=== PATIENT | male | born 1985 | race Caucasian/White ===

== ENCOUNTER 2020-05-01 10:40 | Emergency (ER) | payer MEDICAID ==
[~2020-05-01] VITALS: Ht 180.3 cm; Wt 115.9 kg
[2020-05-01] MEDS ORDERED: OLANZapine 5mg rapidly disint. tablet PO ONE (10:55)
--- NOTE | 2020-05-01 11:15 | NUR ---
Pressured speech and paranoid ideations, refused to give up his bible. Pages reviewed and safe to give back to patient. Gripping the book his chest.
[2020-05-01 11:25] LABS: BASOPHILS # (AUTO) 0.1 X10'3 (0-0.2); BASOPHILS % (AUTO) 0.9 % (0-1); EOSINOPHILS # (AUTO) 0.1 X10'3 (0-0.9); EOSINOPHILS % (AUTO) 1.1 % (0-6); HEMATOCRIT 45.8 % (42.0-52.0); HEMOGLOBIN 15.6 g/dl (14.0-17.9); LYMPHOCYTES # (AUTO) 1.7 X10'3 (1.1-4.8); LYMPHOCYTES % (AUTO) 16.2 % (21-51); MEAN CORPUSCULAR HEMOGLOBIN 30.5 PG (27.0-31.0); MEAN CORPUSCULAR VOLUME 89.6 FL (78-98); MONOCYTES # (AUTO) 0.7 X10'3 (0-0.9); MONOCYTES % (AUTO) 6.5 % (2-12); NEUTROPHILS # (AUTO) 7.9 X10'3 (1.8-7.7); NEUTROPHILS % (AUTO) 75.3 % (42-75); PLATELET COUNT 320 X10'3 (140-440); RED BLOOD COUNT 5.11 X10'6 (4.70-6.10); RED CELL DISTRIBUTION WIDTH 13.6 % (11.5-14.5); WHITE BLOOD COUNT 10.5 X10'3 (4.5-11.0)
[2020-05-01 11:37] LABS: CLARITY,URINE CLOUDY (Clear); COLOR,URINE YELLOW (Yellow); GLUCOSE, URINE NEGATIVE (Neg); KETONES,URINE NEGATIVE (Neg); LEUKOCYTE ESTERASE ,URINE NEGATIVE (Neg); NITRITES, URINE NEGATIVE (Neg); OCCULT BLOOD,URINE NEGATIVE (Neg); PH,URINE 8.5 (4.8-8.0); PROTEIN,URINE NEGATIVE (Neg); UA COLLECTION TYPE CLN CATCH MIDSTREAM; UROBILINOGEN,URINE 0.2 E.U/dL (0.2-1.0)
[2020-05-01 11:44] LABS: ALANINE AMINOTRANSFERASE 53 U/L (12-78); ALBUMIN 3.9 G/DL (3.4-5.0); ALBUMIN/GLOBULIN RATIO 1.1 (1.1-1.5); ALKALINE PHOSPHATASE 109 IU/L (46-116); ANION GAP 7 (8-16); ASPARTATE AMINO TRANSFERASE 57 U/L (10-37); BILIRUBIN,TOTAL 0.2 MG/DL (0.1-1.0); BLOOD UREA NITROGEN 15 MG/DL (7-18); BUN/CREATININE RATIO 13.8 (5.4-32.0); CALCIUM 9.5 MG/DL (8.5-10.1); CHLORIDE 106 MMOL/L (99-107); CREATININE 1.09 MG/DL (0.60-1.10); GLUCOSE 102 MG/DL (70-104); SODIUM 142 MMOL/L (135-145); TOTAL PROTEIN 7.3 G/DL (6.4-8.2); eGFR 78 ML/MIN
[2020-05-01 11:46] LABS: SQUAMOUS EPITHELIAL CELL,UR NONE SEEN /LPF (FEW)
[2020-05-01 11:47] LABS: AMORPHOUS PHOSPHATES 3+; BACTERIA,URINE FEW /HPF (Neg); RBC,URINE NONE SEEN /HPF (0-2); WBC,URINE 0-4 /HPF (0-4)
[2020-05-01 11:50] LABS: URINE AMPHETAMINE SCREEN NEGATIVE (Neg); URINE BARBITUATE SCREEN NEGATIVE (Neg); URINE BENZODIAZEPINES SCREEN NEGATIVE (Neg); URINE CANNABINOID SCREEN POSITIVE (Neg); URINE COCAINE SCREEN NEGATIVE (Neg); URINE METHADONE SCREEN NEGATIVE (Neg); URINE OPIATE SCREEN NEGATIVE (Neg); URINE PHENCYCLIDINE SCREEN NEGATIVE (Neg)
[2020-05-01 11:52] LABS: ETHANOL < 0.010 GM/DL (0.0-0.010)
--- NOTE | 2020-05-01 12:00 | NUR ---
Patient resting on right side with eyes closed, respirations normal
--- NOTE | 2020-05-01 13:31 | NUR ---
Patient states he feels calmer but still endorses paranoid feelings and thoughts. Thinks we are testing him with questions
--- NOTE | 2020-05-01 16:06 | NUR ---
PACKET FAXED TO [facility]
--- NOTE | 2020-05-01 16:06 | NUR ---
Patient was transferred to [facility] bed #20 at 1530. [employer] was at lunch. Pt is sleeping on left side, no distress noted. Will continue to monitor.
[2020-05-01] MEDS ORDERED: NO HOME MEDS (18:35)
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
--- NOTE | 2020-05-01 18:47 | NUR ---
Patient's grandmother, Vy Oma, [phone]
--- NOTE | 2020-05-01 19:54 | NUR ---
[facility] here to interview the patient who was irritable at times. 5150 written.
--- NOTE | 2020-05-01 20:26 | NUR ---
The patient appears to be sleeping
--- NOTE | 2020-05-01 22:57 | NUR ---
The patient appears to be sleeping
--- NOTE | 2020-05-02 00:36 | NUR ---
The patient appears to be sleeping
--- NOTE | 2020-05-02 00:56 | NUR ---
patient lying supine eyes closed covers on r/r even un labored no observable s/s of acute stress at this time will continue to monitor while covering primary RN for lunch
--- NOTE | 2020-05-02 03:52 | NUR ---
The patient appears to be sleeping
--- NOTE | 2020-05-02 05:22 | NUR ---
The patient appears to be sleeping
[2020-05-02 05:58] VITALS: BP 117/75
--- NOTE | 2020-05-02 06:43 | NUR ---
Patient sleeping on left side. No distress observed. Continue to monitor.
[2020-05-02] MEDS ORDERED: OLANZapine 5mg rapidly disint. tablet PO ONE (08:00)
--- NOTE | 2020-05-02 08:45 | NUR ---
RN gave patient his Zyprexa. Patient wants to sleep for a little while longer. Patient rolled over and went back to sleep. Continue to monitor.
--- NOTE | 2020-05-02 09:38 | NUR ---
Patient is awake and alert. Patient c/o hearing voices and he wants to be on medication. Patient states he was only on Effexor but was diagnosed with Schizo-affective d/o. Patient states he used to do meth to self medicate but has been clean for a while. Patient believes he needs help. Continue to monitor.
== END 2020-05-02 14:35 | disposition home or self-care (01) ==
LOC: ER 10:40
DX: F25.8 Other schizoaffective disorders (principal); Z20.822 Contact with and (suspected) exposure to COVID-19; F12.90 Cannabis use, unspecified, uncomplicated; Z59.0 Homelessness; Z88.6 Allergy status to analgesic agent
CPT/HCPCS: 36415; 80053; 80305; 80320; 81001; 84443; 85025; 87635; 99284; C9803; 99285

== ENCOUNTER 2022-12-02 17:52 | Emergency (ER) | payer MEDICAID ==
[~2022-12-02] VITALS: Ht 172.7 cm; Wt 86.4 kg
[~2022-12-02 17:52] MED LIST: NO HOME MEDS; OLAN10TA21 PO; TRAZ-256 PO
[2022-12-02] MEDS ORDERED: diphenhydrAMINE 50 mg/ml inj IM ONE (17:55)
[2022-12-02] MEDS ORDERED: haloperidol lactate 5mg/ml inj IM ONE (17:55)
[2022-12-02] MEDS ORDERED: LORazepam 2 mg/ml vial IM ONE (17:55)
[2022-12-02 21:06] LABS: BASOPHILS # (AUTO) 0.1 X10'3 (0-0.2); BASOPHILS % (AUTO) 0.9 % (0-1); EOSINOPHILS # (AUTO) 0.2 X10'3 (0-0.9); EOSINOPHILS % (AUTO) 1.9 % (0-6); HEMATOCRIT 45.6 % (42.0-52.0); HEMOGLOBIN 15.4 g/dl (14.0-17.9); LYMPHOCYTES # (AUTO) 2.3 X10'3 (1.1-4.8); LYMPHOCYTES % (AUTO) 24.2 % (21-51); MEAN CORPUSCULAR HEMOGLOBIN 30.5 PG (27.0-31.0); MEAN CORPUSCULAR HGB CONC 33.9 g/dL (33.0-36.5); MEAN CORPUSCULAR VOLUME 89.9 FL (78-98); MONOCYTES # (AUTO) 0.8 X10'3 (0-0.9); MONOCYTES % (AUTO) 8.7 % (2-12); NEUTROPHILS # (AUTO) 6.2 X10'3 (1.8-7.7); NEUTROPHILS % (AUTO) 64.3 % (42-75); PLATELET COUNT 312 X10'3 (140-440); RED BLOOD COUNT 5.07 X10'6 (4.70-6.10); RED CELL DISTRIBUTION WIDTH 13.8 % (11.5-14.5); WHITE BLOOD COUNT 9.7 X10'3 (4.5-11.0)
[2022-12-02 21:11] LABS: ALANINE AMINOTRANSFERASE 29 U/L (12-78); ALBUMIN 3.7 G/DL (3.4-5.0); ALBUMIN/GLOBULIN RATIO 1.2 (1.1-1.5); ALKALINE PHOSPHATASE 95 IU/L (46-116); ANION GAP 6 (8-16); ASPARTATE AMINO TRANSFERASE 30 U/L (10-37); BLOOD UREA NITROGEN 10 MG/DL (7-18); BUN/CREATININE RATIO 9.2 (10.0-20.0); CALCIUM 9.4 MG/DL (8.5-10.1); CHLORIDE 103 MMOL/L (99-107); CREATININE 1.09 MG/DL (0.60-1.10); GLUCOSE 84 MG/DL (70-104); POTASSIUM 3.3 MMOL/L (3.5-5.1); SODIUM 137 MMOL/L (135-145); TOTAL CARBON DIOXIDE 27.6 MMOL/L (24-32); TOTAL PROTEIN 6.9 G/DL (6.4-8.2); eCRCL 92 ML/MIN; eGFR 77 ML/MIN
[2022-12-02 21:21] LABS: THYROID STIMULATING HORMONE 1.23 ulU/ml (0.34-4.50)
[2022-12-02 21:24] LABS: ETHANOL < 10 MG/DL (<10)
--- NOTE | 2022-12-03 06:14 | NUR ---
RECEIVED REPORT FROM JF MEDINA ASSUMING CARE OF PT ROOM SECURE PT SLEEPING QUIETLY RESPS EVEN UNLABORED
--- NOTE | 2022-12-03 08:04 | NUR ---
breakfast meal tray given
--- NOTE | 2022-12-03 09:53 | NUR ---
Pt escorted by security from ER. Nurse to nurse report received from [place]. Pt is resting.
--- NOTE | 2022-12-03 09:54 | NUR ---
Per Jossy, RN pt was in 4 point restraints last night and had IM injections d/t combative behavior. RN also stated that within 15 minutes of receiving IM pt was asleep and restraints were removed.
--- NOTE | 2022-12-03 10:13 | NUR ---
Pt lying in bed on left side sleeping. Respirations even and unlabored. No s/s of distress.
[2022-12-03] MEDS ORDERED: potassium Cl 20 mEq SR tablet PO STA (11:07)
--- NOTE | 2022-12-03 11:17 | NUR ---
Pt took medication cooperatively, however became agitated with assessment questions. Pt states "I have the spirit of the devil attached to my face. It knows everything I think and feel". Pt easily agitated.
--- NOTE | 2022-12-03 12:22 | NUR ---
Pt provided urine sample for UA. Pt eating lunch in bed. No s/s of distress.
[2022-12-03 12:41] LABS: BILIRUBIN,URINE SMALL (Neg); CLARITY,URINE CLOUDY (Clear); COLOR,URINE YELLOW (Yellow); GLUCOSE, URINE NEGATIVE (Neg); KETONES,URINE TRACE mg/dl (Neg); LEUKOCYTE ESTERASE ,URINE NEGATIVE (Neg); NITRITES, URINE NEGATIVE (Neg); OCCULT BLOOD,URINE NEGATIVE (Neg); PROTEIN,URINE NEGATIVE (Neg)
[2022-12-03 12:44] LABS: UA COLLECTION TYPE VOIDED
[2022-12-03 13:01] LABS: SQUAMOUS EPITHELIAL CELL,UR FEW /LPF (FEW)
[2022-12-03 13:02] LABS: BACTERIA,URINE FEW /HPF (Neg); CAL OXALATE CRYSTALS 2+ /HPF (NEGATIVE); WBC,URINE 0-4 /HPF (0-4)
[2022-12-03 14:29] LABS: URINE AMPHETAMINE SCREEN POSITIVE (Neg); URINE BARBITUATE SCREEN NEGATIVE (Neg); URINE BENZODIAZEPINES SCREEN NEGATIVE (Neg); URINE CANNABINOID SCREEN POSITIVE (Neg); URINE COCAINE SCREEN NEGATIVE (Neg); URINE METHADONE SCREEN NEGATIVE (Neg); URINE OPIATE SCREEN NEGATIVE (Neg); URINE PHENCYCLIDINE SCREEN NEGATIVE (Neg)
--- NOTE | 2022-12-03 14:30 | NUR ---
Pt is asleep in bed lying on left side. Respirations even and unlabored. No s/s of distress.
[2022-12-03 16:44] VITALS: BP 128/80; PULSE 89; RESP 16; TEMP 98.6; O2SAT 98
--- NOTE | 2022-12-03 16:51 | NUR ---
Pt escorted out of the ER by security. Pt has all belongings & valuables. Pt provided with information about [facility] to find group home. Pt refused to sign paperwork and became very agitated when it was time to leave. Pt made several statements pertaining to how terrible staff is. Pt began yelling and making delusional statements about staff making a super satan out of his blood.
== END 2022-12-03 16:51 | disposition home or self-care (01) ==
LOC: ER 17:53
DX: F29 Unspecified psychosis not due to a substance or known physiological condition (principal); Z20.822 Contact with and (suspected) exposure to COVID-19; J45.909 Unspecified asthma, uncomplicated; F12.90 Cannabis use, unspecified, uncomplicated; Z88.5 Allergy status to narcotic agent; Z79.899 Other long term (current) drug therapy
CPT/HCPCS: 36415; 80053; 80305; 80320; 81001; 84443; 85025; 87811; 96372; 99285; J1200; J1630; J2060

== ENCOUNTER 2023-02-23 12:05 | Emergency (ER) | payer MEDICAID ==
[~2023-02-23] VITALS: Ht 180.3 cm; Wt 90.9 kg
[2023-02-23] MEDS ORDERED: LORazepam 2 mg/ml vial IM ONE (12:25)
[2023-02-23] MEDS: haloperidol lactate 5mg/ml inj IM ONE (12:34)
[2023-02-23] MEDS ORDERED: midazolam 1 mg/ML 2ml injection IV STA (12:35)
[2023-02-23] MEDS: midazolam 1 mg/ML 2ml injection IM STA (12:42)
[2023-02-23 13:43] LABS: BASOPHILS # (AUTO) 0.1 X10'3 (0-0.2); EOSINOPHILS # (AUTO) 0.1 X10'3 (0-0.9); EOSINOPHILS % (AUTO) 1.6 % (0-6); HEMATOCRIT 43.7 % (42.0-52.0); HEMOGLOBIN 14.5 g/dl (14.0-17.9); LYMPHOCYTES # (AUTO) 1.3 X10'3 (1.1-4.8); LYMPHOCYTES % (AUTO) 20.4 % (21-51); MEAN CORPUSCULAR HEMOGLOBIN 29.9 PG (27.0-31.0); MEAN CORPUSCULAR HGB CONC 33.2 g/dL (33.0-36.5); MEAN PLATELET VOLUME 7.5 FL (7.4-10.4); MONOCYTES # (AUTO) 0.5 X10'3 (0-0.9); MONOCYTES % (AUTO) 8.9 % (2-12); NEUTROPHILS # (AUTO) 4.2 X10'3 (1.8-7.7); NEUTROPHILS % (AUTO) 68.1 % (42-75); PLATELET COUNT 315 X10'3 (140-440); RED BLOOD COUNT 4.86 X10'6 (4.70-6.10); RED CELL DISTRIBUTION WIDTH 13.7 % (11.5-14.5); WHITE BLOOD COUNT 6.2 X10'3 (4.5-11.0)
[2023-02-23 14:06] LABS: ALANINE AMINOTRANSFERASE 21 U/L (12-78); ALBUMIN 3.4 G/DL (3.4-5.0); ALBUMIN/GLOBULIN RATIO 1.1 (1.1-1.5); ALKALINE PHOSPHATASE 96 IU/L (46-116); ANION GAP 10 (8-16); ASPARTATE AMINO TRANSFERASE 28 U/L (10-37); BILIRUBIN,TOTAL 0.6 MG/DL (0.1-1.0); BLOOD UREA NITROGEN 14 MG/DL (7-18); BUN/CREATININE RATIO 12.5 (10.0-20.0); CALCIUM 9.4 MG/DL (8.5-10.1); CHLORIDE 104 MMOL/L (99-107); CREATININE 1.12 MG/DL (0.60-1.10); GLUCOSE 112 MG/DL (70-104); POTASSIUM 3.8 MMOL/L (3.5-5.1); SODIUM 140 MMOL/L (135-145); TOTAL PROTEIN 6.6 G/DL (6.4-8.2); eCRCL 98 ML/MIN; eGFR 75 ML/MIN
[2023-02-23 14:13] LABS: ETHANOL < 10 MG/DL (<10); THYROID STIMULATING HORMONE 0.59 ulU/ml (0.34-4.50)
[2023-02-23 15:42] LABS: BILIRUBIN,URINE NEGATIVE (Neg); CLARITY,URINE SLIGHTLY CLOUDY (Clear); COLOR,URINE YELLOW (Yellow); GLUCOSE, URINE NEGATIVE (Neg); KETONES,URINE 15 mg/dl (Neg); LEUKOCYTE ESTERASE ,URINE NEGATIVE (Neg); NITRITES, URINE NEGATIVE (Neg); OCCULT BLOOD,URINE NEGATIVE (Neg); PH,URINE 6.5 (4.8-8.0); PROTEIN,URINE NEGATIVE (Neg)
[2023-02-23 15:46] LABS: UA COLLECTION TYPE CLN CATCH MIDSTREAM; URINE AMPHETAMINE SCREEN POSITIVE (Neg); URINE BARBITUATE SCREEN NEGATIVE (Neg); URINE BENZODIAZEPINES SCREEN POSITIVE (Neg); URINE CANNABINOID SCREEN POSITIVE (Neg); URINE COCAINE SCREEN NEGATIVE (Neg); URINE METHADONE SCREEN NEGATIVE (Neg); URINE OPIATE SCREEN NEGATIVE (Neg); URINE PHENCYCLIDINE SCREEN NEGATIVE (Neg)
[2023-02-23 15:48] LABS: BACTERIA,URINE NONE SEEN /HPF (Neg); MUCUS STRANDS MODERATE /LPF (Neg); RBC,URINE 0-2 /HPF (0-2); SQUAMOUS EPITHELIAL CELL,UR FEW /LPF (FEW); WBC,URINE 0-4 /HPF (0-4)
[2023-02-23 15:49] LABS: AMORPHOUS URATES 2+; FINE GRANULAR CAST 0-3 /LPF (NEGATIVE)
[2023-02-24 05:57] VITALS: BP 120/79; PULSE 70; TEMP 97.8; O2SAT 100
[2023-02-24] MEDS: LORazepam 1 MG tablet PO ONE (06:55)
[2023-02-24 08:05] VITALS: RESP 16
== END 2023-02-24 15:00 | disposition home or self-care (01) ==
LOC: ER 12:06
DX: R45.851 Suicidal ideations (principal); Z20.822 Contact with and (suspected) exposure to COVID-19; J45.909 Unspecified asthma, uncomplicated; Z88.5 Allergy status to narcotic agent; Z79.899 Other long term (current) drug therapy
CPT/HCPCS: 36415; 80053; 80305; 80320; 81001; 84443; 85025; 87811; 96372; 99285; J1630; J2250

== ENCOUNTER 2023-06-03 04:59 | Inpatient (IN) | payer MEDICAID ==
[~2023-06-03] VITALS: Ht 180.3 cm; Wt 75.0 kg
[~2023-06-03 04:59] MED LIST changes: -OLAN10TA21 PO; -TRAZ-256 PO
[2023-06-03] MEDS: ondansetron/PF 4mg/2ml inj IV ONE (07:29)
[2023-06-03] MEDS: normal saline 1000ML IV soln IVB ONE (07:30)
[2023-06-03 07:33] LABS: BASOPHILS % (AUTO) 0.3 % (0-1); EOSINOPHILS # (AUTO) 0.2 X10'3 (0-0.9); EOSINOPHILS % (AUTO) 2.3 % (0-6); HEMATOCRIT 41.1 % (42.0-52.0); HEMOGLOBIN 14.1 g/dl (14.0-17.9); LYMPHOCYTES # (AUTO) 0.7 X10'3 (1.1-4.8); LYMPHOCYTES % (AUTO) 7.7 % (21-51); MEAN CORPUSCULAR HEMOGLOBIN 30.5 PG (27.0-31.0); MEAN CORPUSCULAR HGB CONC 34.3 g/dL (33.0-36.5); MEAN PLATELET VOLUME 7.7 FL (7.4-10.4); MONOCYTES # (AUTO) 0.7 X10'3 (0-0.9); MONOCYTES % (AUTO) 7.8 % (2-12); NEUTROPHILS # (AUTO) 7.1 X10'3 (1.8-7.7); NEUTROPHILS % (AUTO) 81.9 % (42-75); PLATELET COUNT 240 X10'3 (140-440); RED BLOOD COUNT 4.62 X10'6 (4.70-6.10); WHITE BLOOD COUNT 8.7 X10'3 (4.5-11.0)
[2023-06-03 07:46] LABS: ALANINE AMINOTRANSFERASE 14 U/L (12-78); ALBUMIN/GLOBULIN RATIO 0.9 (1.1-1.5); ALKALINE PHOSPHATASE 91 IU/L (46-116); ANION GAP 6 (8-16); ASPARTATE AMINO TRANSFERASE 16 U/L (10-37); BILIRUBIN,TOTAL 0.2 MG/DL (0.1-1.0); BLOOD UREA NITROGEN 7 MG/DL (7-18); BUN/CREATININE RATIO 7.8 (10.0-20.0); CALCIUM 8.4 MG/DL (8.5-10.1); CHLORIDE 105 MMOL/L (99-107); GLUCOSE 90 MG/DL (70-104); LIPASE 139 U/L (16-77); POTASSIUM 3.3 MMOL/L (3.5-5.1); SODIUM 139 MMOL/L (135-145); TOTAL CARBON DIOXIDE 28.1 MMOL/L (24-32); TOTAL PROTEIN 6.3 G/DL (6.4-8.2); eCRCL 122 ML/MIN; eGFR > 90 ML/MIN
[2023-06-03] MEDS: vancomycin 125mg/5ml ORAL solution 5ml UD oral syringe PO SCH (09:30)
[2023-06-03] MEDS: potassium Cl 40MEQ/1/2NS 520ml 520 ML IV ONE (09:30)
[2023-06-03] MEDS ORDERED: ondansetron/PF 4mg/2ml inj IV PRN (10:10)
[2023-06-03] MEDS ORDERED: acetaminophen 325mg tablet PO PRN (10:10)
[2023-06-03] MEDS ORDERED: mag hydrox/Alum hydrox/simeth 30ml oral suspension PO PRN (10:10)
[2023-06-03] MEDS ORDERED: magnesium Cl slow-release 64mg tablet PO PRN (10:10)
[2023-06-03] MEDS ORDERED: potassium Cl 40MEQ/1/2NS 520ml 520 ML IV PRN (10:10)
[2023-06-03] MEDS ORDERED: magnesium 2GM in 50ml NS 50 ML IV PRN (10:10)
[2023-06-03] MEDS ORDERED: HYDROcodone/acetaminophen 10/325mg tab PO PRN (10:10)
[2023-06-03] MEDS ORDERED: HYDROcodone/acetaminophen 5mg/325mg tablet PO PRN (10:10)
[2023-06-03] MEDS ORDERED: magnesium hydroxide 30ml (MOM) UD suspension PO PRN (10:10)
[2023-06-03] MEDS ORDERED: magnesium 4gm in 100ml NS 100 ML IV PRN (10:10)
[2023-06-03] MEDS ORDERED: potassium Cl 20 mEq SR tablet PO PRN ×2 (10:10)
[2023-06-03 10:54] LABS: APTT 27 SECONDS (22-32)
[2023-06-03 10:55] LABS: MAGNESIUM 1.7 MG/DL (1.5-2.4); POTASSIUM 3.7 MMOL/L (3.5-5.1)
[2023-06-03] MEDS: morphine 2 MG/ML inj. syringe IV PRN (10:55)
[2023-06-03] MEDS: normal saline 1000ml 1,000 ML IV SCH (10:55)
[2023-06-03 11:30] LABS: PROTHROMBIN TIME 10.1 SECONDS (9.0-12.0)
[2023-06-03 12:11] LABS: BILIRUBIN,URINE NEGATIVE (Neg); CLARITY,URINE CLEAR (Clear); COLOR,URINE YELLOW (Yellow); GLUCOSE, URINE NEGATIVE (Neg); KETONES,URINE NEGATIVE (Neg); LEUKOCYTE ESTERASE ,URINE NEGATIVE (Neg); NITRITES, URINE NEGATIVE (Neg); OCCULT BLOOD,URINE NEGATIVE (Neg); PROTEIN,URINE NEGATIVE (Neg); UROBILINOGEN,URINE 0.2 E.U/dL (0.2-1.0)
[2023-06-03 12:16] LABS: HEMOGLOBIN A1C 5.2 % (4.5-6.2)
[2023-06-03 12:18] LABS: UA COLLECTION TYPE NON-SPECIFIED
[2023-06-03 12:22] LABS: URINE AMPHETAMINE SCREEN NEGATIVE (Neg); URINE BARBITUATE SCREEN NEGATIVE (Neg); URINE BENZODIAZEPINES SCREEN NEGATIVE (Neg); URINE CANNABINOID SCREEN POSITIVE (Neg); URINE COCAINE SCREEN NEGATIVE (Neg); URINE METHADONE SCREEN NEGATIVE (Neg); URINE OPIATE SCREEN POSITIVE (Neg); URINE PHENCYCLIDINE SCREEN NEGATIVE (Neg)
[2023-06-03] MEDS ORDERED: metroNIDAZOLE-Flagyl 500mg/NS 100 ML IV SCH (16:00)
[2023-06-03] MEDS ORDERED: VANC125C5 PO (16:31)
[2023-06-03] MEDS ORDERED: LACT1CAP74 PO (16:52)
[2023-06-03] MEDS: potassium Cl 20mEq in D5-NS 1,000 ML IV SCH (18:11)
[2023-06-03] MEDS: docusate sod 100mg capsule PO SCH (19:32)
[2023-06-03] MEDS: K and/or MAG REPLACEMENT MC SCH (20:00)
[2023-06-03] MEDS: heparin, porcine 5000 units/ml vial SQ SCH (20:00)
[2023-06-03] MEDS: lactobacillus rhamnosus 10,000 MMU CELLS/CAPSULE PO SCH (20:44)
[2023-06-03 21:25] LABS: ACETAMINOPHEN < 2.0 UG/ML (10-30); ETHANOL < 10 MG/DL (<10); SALICYLATE 0.7 MG/DL (4.0-20.0); THYROID STIMULATING HORMONE 1.13 ulU/ml (0.34-4.50)
[2023-06-04] MEDS: LORazepam 2 mg/ml vial IV PRN (06:44)
[2023-06-04 08:34] LABS: BASOPHILS % (AUTO) 0.6 % (0-1); EOSINOPHILS # (AUTO) 0.3 X10'3 (0-0.9); EOSINOPHILS % (AUTO) 5.8 % (0-6); HEMATOCRIT 39.5 % (42.0-52.0); HEMOGLOBIN 13.4 g/dl (14.0-17.9); LYMPHOCYTES # (AUTO) 1.9 X10'3 (1.1-4.8); LYMPHOCYTES % (AUTO) 36.7 % (21-51); MEAN CORPUSCULAR HEMOGLOBIN 30.4 PG (27.0-31.0); MEAN CORPUSCULAR VOLUME 89.5 FL (78-98); MEAN PLATELET VOLUME 7.3 FL (7.4-10.4); MONOCYTES # (AUTO) 0.5 X10'3 (0-0.9); MONOCYTES % (AUTO) 9.1 % (2-12); NEUTROPHILS # (AUTO) 2.5 X10'3 (1.8-7.7); NEUTROPHILS % (AUTO) 47.8 % (42-75); PLATELET COUNT 223 X10'3 (140-440); RED BLOOD COUNT 4.41 X10'6 (4.70-6.10); RED CELL DISTRIBUTION WIDTH 14.2 % (11.5-14.5); WHITE BLOOD COUNT 5.2 X10'3 (4.5-11.0)
[2023-06-04 08:51] LABS: ALANINE AMINOTRANSFERASE 13 U/L (12-78); ALBUMIN 2.6 G/DL (3.4-5.0); ALBUMIN/GLOBULIN RATIO 0.8 (1.1-1.5); ALKALINE PHOSPHATASE 77 IU/L (46-116); ANION GAP 3 (8-16); ASPARTATE AMINO TRANSFERASE 16 U/L (10-37); BILIRUBIN,TOTAL 0.3 MG/DL (0.1-1.0); BLOOD UREA NITROGEN 5 MG/DL (7-18); BUN/CREATININE RATIO 5.6 (10.0-20.0); CALCIUM 8.2 MG/DL (8.5-10.1); CHLORIDE 106 MMOL/L (99-107); CHOL/HDL RATIO 2.9 (0.00-4.99); CHOLESTEROL 115 MG/DL (0-200); CREATININE 0.89 MG/DL (0.60-1.10); GLUCOSE 85 MG/DL (70-104); HDL CHOLESTEROL 40 MG/DL (35-60); LDL CHOLESTEROL 57 MG/DL (50-100); LIPASE 31 U/L (16-77); MAGNESIUM 1.9 MG/DL (1.5-2.4); PHOSPHORUS 3.7 MG/DL (2.3-4.5); POTASSIUM 3.9 MMOL/L (3.5-5.1); SODIUM 137 MMOL/L (135-145); TOTAL CARBON DIOXIDE 28.5 MMOL/L (24-32); TOTAL PROTEIN 5.8 G/DL (6.4-8.2); TRIGLYCERIDES 109 MG/DL (20-135); eCRCL 123 ML/MIN; eGFR > 90 ML/MIN
[2023-06-04 17:43] LABS: COVID19 ID NOW NEGATIVE (Neg)
[2023-06-05] MEDS: acetaminophen 325mg tablet PO PRN (11:41)
[2023-06-05] MEDS: ziprasidone IM 20mg inj **IM only IM ONE (16:18)
[2023-06-06 12:15] VITALS: BP 120/73; PULSE 60; RESP 16; TEMP 97.6; O2SAT 100
== END 2023-06-06 12:24 | disposition home or self-care (01) | DRG 248 ==
LOC: ER 05:00 → ED HOLD 10:14 → EDBEDREQ 17:38 → ED HOLD 06-04 03:34
PROVIDERS: ADMIT Family Medicine; ATTEND Family Medicine
DX: A04.72 Enterocolitis due to Clostridium difficile, not specified as recurrent (principal); E44.1 Mild protein-calorie malnutrition; E86.0 Dehydration; J45.909 Unspecified asthma, uncomplicated; Z88.5 Allergy status to narcotic agent; F11.10 Opioid abuse, uncomplicated; F12.10 Cannabis abuse, uncomplicated; Z20.822 Contact with and (suspected) exposure to COVID-19; F17.210 Nicotine dependence, cigarettes, uncomplicated; Z56.0 Unemployment, unspecified; Z59.00 Homelessness unspecified; Z68.23 Body mass index [BMI] 23.0-23.9, adult; Z71.6 Tobacco abuse counseling; Z72.811 Adult antisocial behavior; Z91.199 Patient's noncompliance with other medical treatment and regimen due to unspecified reason
CPT/HCPCS: 36415; 74176; 80053; 80061; 80305; 80320; 80329; 81003; 83036; 83605; 83690; 83735; 84100; 84132; 84443; 85025; 85610; 85730; 87040; 87045; 87046; 87635; 87811; 93005; 93306; 96365; 96375; 99285; G0378; J1644; J2060; J2270; J2405; J3480; J3486; J7030